=== PATIENT | male | born 1965 | race African-American/Black ===

== ENCOUNTER 2016-08-25 17:05 | Emergency (ER) | payer BC ==
--- NOTE | 2016-08-25 17:52 | ED Physician Chart ---
Chief Complaint/HPI - Patient Information Date Seen:: 08/25/16 Time Seen:: 17:30 Chief Complaint:: parethesias left foot History of Present Illness:: has had paresthesias metatarsal arch and plantar surface of toes left foot for the last one week. Has had low back pain for the last one month. Denies bladder or bowel problems. Allergies:: Allergies Allergy/AdvReac Type Severity Reaction Status Date / Time No Known Allergies Allergy Verified 08/25/16 17:22 Vitals:: Vital Signs - 8 hr 08/25/16 17:23 Temp 97.7 F HR 84 RR 18 BP 161/88 O2 Sat % 99 Historian:: Patient Review:: Nurse's Note Reviewed Review of Systems - Review of Systems General/Constitutional: No fever, No chills Skin: No skin lesions Head: No headache Eyes: No loss of vision ENT: No earache Neck: No neck pain Cardio Vascular: No chest pain, No palpitations Pulmonary: No SOB GI: No nausea, No vomiting G/U: No dysuria, No frequency Musculoskeletal: Bone or joint pain, Back pain, Muscle pain Psychiatric: No prior psych history Hematopoietic: No bruising Allergic/Immuno: No urticaria Neurological: No syncope Past Medical History - Past Medical History Past Medical History: No significant medical hx Family History: HTN Social History: Non Smoker, No Alcohol Surgical History: None Psychiatricy History: None Medication: Reviewed Physical Exam - Physical Examination General/Constitutional: Well-developed, well-nourished, No distress Head: Atraumatic Eyes: Lids, conjuctiva normal, PERRL Skin: Nl inspection ENMT: External ears, nose nl, TM canals nl, Nasal exam nl, Lips, teeth, gums nl , Oropharynx nl, Tonsils nl Neck: No nuchal rigidity Respiratory: Nl effort/Exclusion, Clear to Auscultation Cardio Vascular: RRR, No murmur, gallop, rubs GI: No tenderness/rebounding/guarding, No organomegaly : No CVA tenderness Extremities: No edema, Normal digits & nails Neuro/Psych: No focal deficits Other Neuro/Psych comments:: SLR of 90 degrees bilaterally; DTRs knees 1.5/4 ankles 2/4 Assessment - Assessment General Assessment: suggested referral to orthopedist by PCP for possible MRI back ED Septic Shock - . Is Septic Shock (SBP<90, OR Lactate>4 mmol\L) present?: No - <6hrs of presentation: Vital Signs: Vital Signs - 8 hr 08/25/16 17:23 Temp 97.7 F HR 84 RR 18 BP 161/88 O2 Sat % 99 Reassessment (Disposition) - Reassessment Reassessment Condition:: Unchanged - Diagnosis Diagnosis:: paresthesias; low back pain - Aftercare/Follow up Instructions Aftercare/Follow-Up Instructions:: Refer to Discharge Instructions - Patient Disposition Discharge/Transfer:: Home Condition at Disposition:: Stable, Unchanged
== END 2016-08-25 18:00 | disposition home or self-care (01) ==
LOC: ER 17:05
DX: R20.2 Paresthesia of skin (principal); M54.5 Low back pain
CPT/HCPCS: Z7502